=== PATIENT | male | born 1985 | race Caucasian/White ===

== ENCOUNTER 2017-08-08 08:26 | Emergency (ER) | payer SELFPAY ==
--- NOTE | 2017-08-08 08:29 | PDOC ---
Attending Attestation - Resident Resident Name: Jeffrey Thorne - HPI HPI: 08/08/17 11:04 Pt presents to the ED complaining of a two day history of constant pleuritic chest pain. Denies shortness of breath. No cardiac risk factors. - Physicial Exam PE: 08/08/17 11:05 agree with resident exam. Exam is unremarkable except for parasternal tenderness to palpation. - Medical Decision Making 08/08/17 11:05 Pt presents to the ED complaining of chest pain. Pain is atypical of ACS. EKG and troponin checked to rule out ACS and are negative. Will discharge home.
--- NOTE | 2017-08-08 08:31 | PDOC ---
History of Present Illness - General Stated Complaint: CHEST PAIN Time Seen by Provider: 08/08/17 08:28 - History of Present Illness Initial Comments: 08/08/17 08:38 The patient is a 32 year old male with a history of anxiety who presents for evaluation of chest pain. The patient reports a 2 day history of left sided sharp chest pain with radiation into his left shoulder prompting his presentation to the ED today. He denies having similar symptoms in the past. He denies any exacerbating factors as well. He denies fevers, chills, SOB, abdominal pain, or changes with urination or bowel movements. Past History - Past Medical History Allergies/Adverse Reactions: Allergies Allergy/AdvReac Type Severity Reaction Status Date / Time No Known Allergies Allergy Verified 08/08/17 09:07 Home Medications: Ambulatory Orders Alprazolam [Xanax -] 0.25 mg PO BID #5 tablet 04/10/14 Seizures: Yes - Immunization History Immunization Up to Date: Yes - Suicide/Smoking/Psychosocial Hx Smoking Status: Yes Smoking History: Current every day smoker Number of Cigarettes Smoked Daily: 8 Hx Alcohol Use: No (occasion) Drug/Substance Use Hx: Yes Substance Use Type: Marijuana Hx Substance Use Treatment: No Review of Systems - Review of Systems Comments:: 08/08/17 08:40 Constitutional: No fevers, chills, fatigue, malaise HEENT: No Rhinorrhea, nasal congestion, visual changes Cardiovascular: Chest pain. No syncope, palpitations, lightheadedness Respiratory: No Cough, SOB, Hemoptysis, Gastrointestinal: No Abdominal pain, Nausea, Vomiting, Constipation, Diarrhea, Melena Genitourinary: No Dysuria, Frequency, Urgency, Hesitancy, Hematuria, Flank pain Musculoskeletal: No Myalgia, arthralgia Skin: No rashes, bruising, pallor Neurologic: No Headache, Dizziness, Numbness, Weakness, or Tingling Psychiatric: No Hallucinations. No SI or HI *Physical Exam - Physical Exam Comments: 08/08/17 08:41 General Appearance: Nourished. No Apparent Distress HEENT: EOMI, ROSSY. No Pharyngeal Erythema, Tonsillar Exudate, Tonsillar Erythema Neck: No Cervical Lymphadenopathy Respiratory/Chest: Lungs Clear, Normal Breath Sounds. Reproducible tenderness to palpation along the left sternal border. No Crackles, Rales, Rhonchi, Wheezing Cardiovascular: Regular Rhythm, Regular Rate. No Murmur, Gallops, Rubs Gastrointestinal/Abdominal: Normal Bowel Sounds, Soft. No Guarding, Rebound, Tenderness Musculoskeletal: No CVA Tenderness Extremity: Normal Capillary Refill Integumentary: Normal Color, Dry, Warm Neurologic: Fully Oriented, Alert, Normal Mood/Affect, Normal Response, Heart Score/ECG Review #1 ECG reviewed & interpreted by me at: 09:25 General ECG Interpretation: Sinus Rhythm, Normal Rate, Normal Intervals, No acute ischemic changes ED Treatment Course - LABORATORY CBC & Chemistry Diagram: 08/08/17 09:25 08/08/17 09:25 Medical Decision Making - Medical Decision Making 08/08/17 08:42 The patient is a 32 year old male with a history of anxiety who presents for evaluation of chest pain. Differential includes but is not limited to: ACS, musculoskeletal, infectious, metabolic derangement. Given the patient's reproducible tenderness on palpation, physical exam, and history, it is likely the patient's symptoms are musculoskeletal in nature. However we will obtain a cbc, cmp, troponin, ekg to evaluate for other etiologies. We will continue to monitor and reassess. 08/08/17 10:07 CBC, cmp, troponin, ekg were unremarkable. The patient's symptoms are likely musculoskeletal in nature and he reports improvement after toradol. We are comfortable discharging the patient home at this time with primary care provider follow up. We discussed the results and the plan with the patient who voiced understanding and is agreeable with the plan. *DC/Admit/Observation/Transfer Diagnosis at time of Disposition: Musculoskeletal chest pain Chest pain Qualifiers: Chest pain type: unspecified Qualified Code(s): R07.9 - Chest pain, unspecified - Discharge Dispostion Disposition: HOME Condition at time of disposition: Improved Admit: No - Referrals - Patient Instructions Printed Discharge Instructions: DI for Atypical Chest Pain Additional Instructions: Please return to the ER if you experience concerning or worsening symptoms including difficulty breathing, worsening chest pain, or fevers. You were seen in the ER for chest pain. Your lab results were normal and your EKG was normal. It is likely your chest pain is due to a musculoskeletal strain or sprain. You may use ibuprofen or tylenol as needed at home to help manage your symptoms. Please call to schedule a follow up appointment with your primary care provider within 1 week to discuss your ER visit and further management of your symptoms. - Post Discharge Activity
[2017-08-08] MEDS ORDERED: KETOROLAC TROMETHAMINE 30 MG/1 ML VIAL IVPUSH ONE (08:47)
[2017-08-08] MEDS ORDERED: KETOROLAC TROMETHAMINE 30 MG/1 ML VIAL ONE (09:05)
[2017-08-08 09:08] VITALS: TEMP 98.2; BMI 33.0
[2017-08-08 09:33] VITALS: BP 106/74; PULSE 71
[2017-08-08 09:50] LABS: ALBUMIN 3.7 g/dl (3.4-5.0); ANION GAP 8 (8-16); BILIRUBIN,TOTAL 0.3 mg/dL (0.2-1.0); BLOOD UREA NITROGEN 9 mg/dL (7-18); CALCIUM 8.3 mg/dL (8.5-10.1); CHLORIDE 103 mmol/L (98-107); CO2 28 mmol/L (21-32); CREATININE 0.7 mg/dL (0.7-1.3); GLUCOSE,RANDOM 99 mg/dL (74-106); SGOT/AST 17 U/L (15-37); SGPT/ALT 44 U/L (12-78); SODIUM 139 mmol/L (136-145)
[2017-08-08 09:53] LABS: ALK PHOS 116 U/L (45-117); BASO % 0.4 % (0-2.0); EOS % 2.1 % (0-4.5); HEMATOCRIT 45.8 % (35.4-49); MCH 29.9 pg (25.7-33.7); MCHC 32.7 g/dl (32.0-35.9); MEAN CELL VOLUME 91.2 fl (80-96); MEAN PLT VOLUME 8.8 fl (7.5-11.1); MONO % 8.9 % (3.8-10.2); NEUT % 65.6 % (42.8-82.8); PLATELET COUNT 162 K/MM3 (134-434); RBC 5.02 M/mm3 (4.00-5.60); RDW 14.1 % (11.9-15.9); WHITE BLOOD COUNT 8.6 K/mm3 (4.0-10.0)
--- NOTE | 2017-08-08 10:25 | EKG ---
Test Reason : Blood Pressure : / mmHG Vent. Rate : 076 BPM Atrial Rate : 076 BPM P-R Int : 130 ms QRS Dur : 078 ms QT Int : 374 ms P-R-T Axes : 003 002 002 degrees QTc Int : 420 ms NORMAL SINUS RHYTHM MINIMAL VOLTAGE CRITERIA FOR LVH, MAY BE NORMAL VARIANT BORDERLINE ECG WHEN COMPARED WITH ECG OF 10-APR-2014 05:19, ST NO LONGER ELEVATED IN INFERIOR LEADS INVERTED T WAVES HAVE REPLACED NONSPECIFIC T WAVE ABNORMALITY IN INFERIOR LEADS T WAVE AMPLITUDE HAS DECREASED IN LATERAL LEADS CLINICAL CORRELATION IS RECOMMENDED BASELINE ARTIFACT Confirmed by AMBERLY MENDEZ, JUANCHO ([id number]) on 08/08/2017 10:24:51 AM Referred By: Confirmed By:JUANCHO GAMING MD
== END 2017-08-08 10:14 | disposition home or self-care (01) ==
LOC: JER 08:26
PROC: 3E0333Z Introduction of Anti-inflammatory into Peripheral Vein, Percutaneous Approach (ICD-10-PCS; principal; 2017-08-08)
DX: R07.89 Other chest pain (principal); F41.9 Anxiety disorder, unspecified; F17.210 Nicotine dependence, cigarettes, uncomplicated
CPT/HCPCS: 36415; 80053; 82550; 84484; 85025; 93005; 93010; 99284-25

== ENCOUNTER 2017-08-12 23:04 | Emergency (ER) | payer SELFPAY ==
[2017-08-12 23:16] VITALS: BP 109/62; PULSE 86; TEMP 98.7; BMI 34.4
--- NOTE | 2017-08-12 23:27 | PDOC ---
History of Present Illness - General Chief Complaint: Chest Pain Stated Complaint: CHEST PAIN Time Seen by Provider: 08/12/17 23:24 History Source: Patient - History of Present Illness Initial Comments: 08/12/17 23:53 32 year old male c/o midsternal chest pain worse with inactivity. occasional palpitations for 1 week. denies fever/ chills, cough, nausea, dipahoresis. no recent travel/ trauma, prolonged sitting pmhx: anxiety 08/13/17 01:01 Past History - Past Medical History Allergies/Adverse Reactions: Allergies Allergy/AdvReac Type Severity Reaction Status Date / Time No Known Allergies Allergy Verified 08/12/17 23:14 Home Medications: Ambulatory Orders NK [No Known Home Medication] 08/13/17 COPD: No Psychiatric Problems: Yes (anxiety) - Immunization History Immunization Up to Date: Yes - Suicide/Smoking/Psychosocial Hx Smoking Status: Yes Smoking History: Never smoked Have you smoked in the past 12 months: No Number of Cigarettes Smoked Daily: 8 Information on smoking cessation initiated: No Hx Alcohol Use: No Drug/Substance Use Hx: No Substance Use Type: Marijuana Hx Substance Use Treatment: No Review of Systems - Review of Systems Able to Perform ROS?: Yes Is the patient limited Luxem[place]ish proficient: No *Physical Exam - Vital Signs Last Vital Signs Temp Pulse Resp BP Pulse Ox 98.7 F 86 14 109/62 97 08/12/17 23:15 08/12/17 23:15 08/12/17 23:15 08/12/17 23:15 08/12/17 23:15 - Physical Exam General Appearance: Yes: Appropriately Dressed Respiratory/Chest: positive: Lungs Clear, Normal Breath Sounds Cardiovascular: positive: Regular Rhythm, Regular Rate, S1, S2. negative: Edema , JVD, Murmur, Bradycardia, Tachycardia, Diastolic Murmur, Systolic Murmur, Gallop/S3, Gallop/S4, Irregularly Irregular, Irregular, Other Gastrointestinal/Abdominal: positive: Normal Bowel Sounds, Soft Extremity: positive: Normal Capillary Refill, Normal Inspection, Normal Range of Motion Integumentary: positive: Normal Color, Dry, Warm Neurologic: positive: Fully Oriented, Alert Heart Score/ECG Review - ECG Intrepretation Rhythm: Regular Rhythm Comment:: 08/13/17 01:48 79bpm: NSR ED Treatment Course - LABORATORY CBC & Chemistry Diagram: 08/13/17 00:07 08/13/17 00:07 - ADDITIONAL ORDERS Additional order review: Laboratory Results 08/13/17 08/13/17 00:07 00:07 PT with INR 10.40 INR 0.92 Sodium 141 Potassium 4.1 Chloride 104 Carbon Dioxide 26 Anion Gap 11 BUN 11 D Creatinine 0.8 Creat Clearance w eGFR > 60 Random Glucose 117 H Calcium 8.5 Magnesium 2.3 Total Bilirubin 0.2 D AST 22 D ALT 42 Alkaline Phosphatase 119 H Creatine Kinase 130 Troponin I < 0.02 Total Protein 6.9 Albumin 3.7 08/13/17 00:07 RBC 4.87 MCV 90.2 MCHC 33.8 RDW 14.4 MPV 9.0 Neutrophils % 70.3 Lymphocytes % 19.7 Monocytes % 7.9 Eosinophils % 1.6 Basophils % 0.5 - RADIOLOGY Radiology Studies Ordered: Category Date Time Status CHEST PA & LAT [RAD] Stat Radiology 08/13/17 00:18 Taken - Medications Given in the ED: ED Medications Discontinued Medications Generic Name Dose Route Start Last Admin Trade Name Júnior PRN Reason Stop Dose Admin Aspirin 162 mg 08/12/17 23:43 08/13/17 00:11 Asa - PO 08/12/17 23:44 162 mg ONCE ONE Administration *DC/Admit/Observation/Transfer Diagnosis at time of Disposition: Chest pain Qualifiers: Chest pain type: other chest pain Qualified Code(s): R07.89 - Other chest pain ; R07.8 - Other chest pain - Discharge Dispostion Disposition: HOME - Referrals Referrals: Amadeo Reed MD [Staff Physician] - - Patient Instructions Printed Discharge Instructions: DI for Chest Pain Additional Instructions: your work up was negative. it is not clear the cause of your chest pain. please follow up with your doctor as soon as possible. return to the ED if symptoms - Post Discharge Activity
[2017-08-12] MEDS ORDERED: ASPIRIN 81 MG CHEWABLE TABLETS PO ONE (23:43)
[2017-08-13] MEDS ORDERED: ASPIRIN 81 MG CHEWABLE TABLETS ONE
--- NOTE | 2017-08-13 00:30 | PDOC ---
*Physical Exam - Vital Signs Last Vital Signs Temp Pulse Resp BP Pulse Ox 98.7 F 86 14 109/62 97 08/12/17 23:15 08/12/17 23:15 08/12/17 23:15 08/12/17 23:15 08/12/17 23:15 ED Treatment Course - LABORATORY CBC & Chemistry Diagram: 08/13/17 00:07 08/13/17 00:07 - Medications Given in the ED: ED Medications Discontinued Medications Generic Name Dose Route Start Last Admin Trade Name Wardq PRN Reason Stop Dose Admin Aspirin 162 mg 08/12/17 23:43 08/13/17 00:11 Asa - PO 08/12/17 23:44 162 mg ONCE ONE Administration Medical Decision Making - Medical Decision Making 08/13/17 00:30 agree with care from CARLY Escalera
[2017-08-13 00:44] LABS: BASO % 0.5 % (0-2.0); EOS % 1.6 % (0-4.5); HEMOGLOBIN 14.9 GM/dL (11.7-16.9); LYMPH % 19.7 % (8-40); MCH 30.5 pg (25.7-33.7); MCHC 33.8 g/dl (32.0-35.9); MEAN CELL VOLUME 90.2 fl (80-96); MONO % 7.9 % (3.8-10.2); NEUT % 70.3 % (42.8-82.8); PLATELET COUNT 174 K/MM3 (134-434); RBC 4.87 M/mm3 (4.00-5.60); RDW 14.4 % (11.9-15.9); WHITE BLOOD COUNT 9.1 K/mm3 (4.0-10.0)
[2017-08-13 00:55] LABS: ALBUMIN 3.7 g/dl (3.4-5.0); ANION GAP 11 (8-16); BILIRUBIN,TOTAL 0.2 mg/dL (0.2-1.0); BLOOD UREA NITROGEN 11 mg/dL (7-18); CALCIUM 8.5 mg/dL (8.5-10.1); CHLORIDE 104 mmol/L (98-107); CO2 26 mmol/L (21-32); CREATININE 0.8 mg/dL (0.7-1.3); GLUCOSE,RANDOM 117 mg/dL (74-106); MAGNESIUM 2.3 mg/dL (1.8-2.4); POTASSIUM 4.1 mmol/L (3.5-5.1); SGOT/AST 22 U/L (15-37); SGPT/ALT 42 U/L (12-78); SODIUM 141 mmol/L (136-145); TOT PROT 6.9 g/dl (6.4-8.2)
[2017-08-13 00:58] LABS: ALK PHOS 119 U/L (45-117)
[2017-08-13 01:24] LABS: INR 0.92 (0.82-1.09); PROTHROMBIN TIME (PATIENT) 10.4 SEC (9.98-11.88)
--- NOTE | 2017-08-13 10:25 | EKG ---
Test Reason : Blood Pressure : / mmHG Vent. Rate : 079 BPM Atrial Rate : 079 BPM P-R Int : 128 ms QRS Dur : 084 ms QT Int : 376 ms P-R-T Axes : 030 025 025 degrees QTc Int : 431 ms NORMAL SINUS RHYTHM NORMAL ECG WHEN COMPARED WITH ECG OF 08-AUG-2017 08:37, NO SIGNIFICANT CHANGE WAS FOUND Confirmed by SHERIDAN AHN MD ([id number]) on 08/13/2017 10:24:38 AM Referred By: Confirmed By:SHERIDAN AHN MD
== END 2017-08-13 02:15 | disposition home or self-care (01) ==
LOC: JER 23:04
DX: R07.89 Other chest pain (principal); F41.9 Anxiety disorder, unspecified
CPT/HCPCS: 36415; 71046-TC; 80053; 82550; 83735; 84484; 85025; 85610; 93005; 93010; 99284-25

== ENCOUNTER 2024-11-13 11:32 | Emergency (ER) | payer OTHER ==
[2024-11-13] MEDS ORDERED: KETOROLAC TROMETHAMINE 30 MG/1 ML VIAL ONE (12:44)
[2024-11-13] MEDS ORDERED: METHOCARBAMOL 500 MG TABLET ONE (12:44)
[2024-11-13] MEDS ORDERED: LIDOCAINE 4% PATCH TP ONE (12:44)
[2024-11-13 12:49] VITALS: BP 119/66; PULSE 83; RESP 21; TEMP 98.1; BMI 40.1
[2024-11-13] MEDS: KETOROLAC TROMETHAMINE 30 MG/1 ML VIAL IM ONE (12:56)
[2024-11-13] MEDS: METHOCARBAMOL 500 MG TABLET PO ONE (12:57)
[2024-11-13] MEDS: LIDOCAINE 4% PATCH TP ONE (12:57)
[2024-11-13] MEDS ORDERED: LIDOCAINE PATCH REMOVAL MC SCH (22:00)
== END 2024-11-13 13:32 | disposition home or self-care (01) ==
LOC: JER 11:32
PROC: 3E0233Z Introduction of Anti-inflammatory into Muscle, Percutaneous Approach (ICD-10-PCS; principal; 2024-11-13)
DX: S39.012A Strain of muscle, fascia and tendon of lower back, initial encounter (principal); X50.0XXA Overexertion from strenuous movement or load, initial encounter
CPT/HCPCS: 72100-TC-FY; 96372; 99284-25

== ENCOUNTER 2024-12-23 08:44 | Emergency (ER) | payer OTHER ==
[2024-12-23 08:52] VITALS: BP 125/95; PULSE 89; RESP 20; TEMP 97.9; BMI 38.0
[2024-12-23] MEDS ORDERED: TETRACAINE 0.5% OPHTH SOLN 2 ML BOTTLE ONE (09:38)
[2024-12-23] MEDS ORDERED: FLUORESCEIN NA 1 EA STRIP ONE (09:38)
[2024-12-23] MEDS: FLUORESCEIN NA 1 EA STRIP OD ONE (09:50)
[2024-12-23] MEDS: TETRACAINE 0.5% HCL 0.6ML DROPPER.BOTTLE OD ONE (09:50)
== END 2024-12-23 10:10 | disposition home or self-care (01) ==
LOC: JERFT 08:44
DX: H10.13 Acute atopic conjunctivitis, bilateral (principal)
CPT/HCPCS: 99283-25